=== PATIENT | female | born 1985 | race Two or more races ===

== ENCOUNTER 2016-03-20 12:09 | Emergency (ER) | payer MEDICAID ==
[~2016-03-20] VITALS: Ht 170.2 cm; Wt 105.2 kg
[2016-03-20] MEDS ORDERED: NKM (12:26)
--- NOTE | 2016-03-20 12:55 | Emergency Room Report ---
History of Present Illness General Chief Complaint: Complications Source: Patient Present Illness HPI The patient is a 30-year-old female presenting for possible miscarriage. The patient states that she missed her last period and then noticed tissue passing from the vagina yesterday after some cramping. The patient denies any other vaginal discharge and denies dysuria, flank pain, fever, chills. The patient states that the pain has stopped and denies any discharge or bleeding today. Allergies: Coded Allergies: SHRIMP (Verified Allergy, Unknown, 03/20/16) Patient History Past Medical History: see triage record Pertinent Family History: none Last Menstrual Period: 02/02/2016 Now: Yes : 3 Para: 0 Reviewed Nursing Documentation: PMH: Agreed, PSxH: Agreed Nursing Documentation-PMH Past Medical History: No Stated History Review of Systems All Other Systems: negative except mentioned in HPI Physical Exam Vital Signs Date Time Temp Pulse Resp B/P Pulse Ox O2 Delivery O2 Flow Rate FiO2 03/20/16 12:20 98.8 80 16 117/87 97 Room Air Sp02 EP Interpretation: reviewed, normal General Appearance: no apparent distress, alert, GCS 15, non-toxic Head: normocephalic, atraumatic Eyes: bilateral eye PERRL, bilateral eye normal inspection ENT: hearing grossly normal, normal pharynx, no angioedema, normal voice Neck: full range of motion, supple/symm/no masses Respiratory: chest non-tender, lungs clear, normal breath sounds, speaking full sentences Cardiovascular #1: regular rate, rhythm, no edema Cardiovascular #2: 2+ carotid (R), 2+ carotid (L), 2+ radial (R), 2+ radial (L) , 2+ dorsalis pedis (R), 2+ dorsalis pedis (L) Gastrointestinal: normal bowel sounds, non tender, soft, non-distended, no guarding, no rebound Rectal: deferred Genitourinary: normal inspection, no CVA tenderness Musculoskeletal: back normal, gait/station normal, normal range of motion, non- tender Neurologic: alert, oriented x3, responsive, motor strength/tone normal, sensory intact, speech normal Psychiatric: judgement/insight normal, memory normal, mood/affect normal, no suicidal/homicidal ideation Reflexes: 3+ bicep (R), 3+ bicep (L), 3+ tricep (R), 3+ tricep (L), 3+ knee (R) , 3+ knee (L) Skin: normal color, no rash, warm/dry, well hydrated Lymphatic: no adenopathy Medical Decision Making PA Attestation Dr. Kearney is my supervising physician. Patient management was discussed with my supervising physician Diagnostic Impression: Primary Impression: Incomplete miscarriage ER Course The patient is a 30-year-old female presenting for possible miscarriage. Differential diagnoses considered include but not limited to Early , threatened , incomplete , complete , ectopic , hemorrhagic cyst PE: Vitals WNL. NAD. Abdomen: Normal appearance. Non distended. No ecchymosis. Normal BS. Non TTP. No McBurney point tenderness. No guarding. No CVA tenderness Labs: Urinalysis is unremarkable. No signs of infection. Qualitative urine beta hCG is positive. Quantitative beta hCG is elevated at 1,011 Pelvic US: No IUP. No gestational sac. Small free fluid in cul-de-sac The patient was informed of these results and was told that she needs to followup with her primary care physician in 48 hours for repeat beta hCG. The patient was given Zofran for her nausea. ER precautions are given Laboratory Tests Test 03/20/16 12:40 03/20/16 15:00 Urine Color Pale yellow Urine Appearance Clear Urine pH 6 (4.5-8.0) Urine Specific Burton 1.010 (1.005-1.035) Urine Protein Negative (NEGATIVE) Urine Glucose (UA) Negative (NEGATIVE) Urine Ketones Negative (NEGATIVE) Urine Occult Blood 1+ (NEGATIVE) H Urine Nitrite Negative (NEGATIVE) Urine Bilirubin Negative (NEGATIVE) Urine Urobilinogen Normal MG/DL (0.0-1.0) Urine Leukocyte Esterase Negative (NEGATIVE) Urine RBC 0-2 /HPF (0 - 2) Urine WBC 0-2 /HPF (0 - 2) Urine Squamous Epithelial Cells Few /LPF (NONE/OCC) Urine Bacteria Few /HPF (NONE) Urine HCG, Qualitative Positive Human Chorionic Gonadotropin, Quant 1011 mIU/mL Lab Results Impression Urinalysis is unremarkable. No signs of infection. Qualitative urine beta hCG is positive. Quantitative beta hCG is elevated at 1,011 CT/MRI/US Diagnostic Results CT/MRI/US Diagnostic Results : Imaging Test Ordered: Pelvic US Impression No gestational sac, small amount of free fluid in cul-de-sac Last Vital Signs Date Time Temp Pulse Resp B/P Pulse Ox O2 Delivery O2 Flow Rate FiO2 03/20/16 12:20 98.8 80 16 117/87 97 Room Air Status: improved Disposition: HOME, SELF-CARE Condition: Improved Scripts Ondansetron* (ZOFRAN*) 4 Mg Tablet 4 MG ORAL Q6H Y for Nausea & Vomiting, #15 TAB Prov: MICHELLE ARAUJO 03/20/16 MICHELLE ARAUJO Mar 20, 2016 12:55
[2016-03-20 13:12] LABS: APPEARANCE,URINE CLEAR; KETONES,URINE NEGATIVE (NEGATIVE); LEUKOCYTE ESTERASE ,URINE NEGATIVE (NEGATIVE); NITRITE,URINE NEGATIVE (NEGATIVE); PH,URINE 6 (4.5-8.0); PROTEIN,URINE NEGATIVE (NEGATIVE); UROBILINOGEN,URINE NORMAL MG/DL (0.0-1.0)
[2016-03-20 13:25] LABS: BACTERIA,URINE FEW /HPF; RBC,URINE 0-2 /HPF (0 - 2); SQUAMOUS EPITHELIAL CELL,UR FEW /LPF (NONE/OCC); WBC,URINE 0-2 /HPF (0 - 2)
[2016-03-20 16:05] VITALS: BP 117/87
[2016-03-20] MEDS ORDERED: ZOFRAN4 M3 ORAL (16:59)
[2016-03-20 17:05] VITALS: BP 117/87
--- NOTE | 2016-03-21 12:03 | Diagnostic Imaging Report ---
Indication:Lower abdominal and pelvic pain Technique: Grayscale and duplex Doppler imaging of the pelvis performed utilizing a transabdominal scan and endovaginal scan. Comparison: None Findings: Uterus is retroverted. No gestational sac demonstrated. Both ovaries seen and appear normal. The uterus is 8 x 5 x 5 CM. Right ovary 3.8 x 3.7 x 3.1 CM. Left ovary 4.8 x 3.6 x 2.2 CM. No free fluid demonstrated. Impression: Negative pelvic ultrasound
== END 2016-03-20 17:06 | disposition home or self-care (01) ==
LOC: EMR 12:57
DX: O03.4 Incomplete spontaneous abortion without complication (principal); Z91.013 Allergy to seafood
CPT/HCPCS: 36415; 76856; 81003; 81025; 84702; 99283